=== PATIENT | female | born 1955 | race Caucasian/White ===

== ENCOUNTER → 2016-06-17 | Outpatient (CLI) | payer OTHER ==
--- NOTE | 2016-06-18 07:54 | MM ---
Reason for exam: screening (asymptomatic). Last mammogram was performed 2 years ago. History: Patient is postmenopausal, history of other cancer, and had first child at age 35. Took hormonal contraceptives for 3 months beginning at age 25. Took estrogen for 9 years beginning at age 44. Took progesterone for 9 years beginning at age 44. Physical Findings: A clinical breast exam by your physician is recommended on an annual basis and results should be correlated with mammographic findings. MG Screening Mammo w CAD Bilateral CC and MLO view(s) were taken. Prior study comparison: June 13, 2014, bilateral MG screening mammo w CAD. April 05, 2012, bilateral digital screening mammo w/CAD. The breast tissue is heterogeneously dense. This may lower the sensitivity of mammography. Small nodular density central right breast 2.4cm from nipple. This finding is changed when compared with previous exams. ASSESSMENT: Incomplete: need additional imaging evaluation, BI-RAD 0 RECOMMENDATION: Special view mammogram of the right breast. [facility] will attempt to contact patient to return for supplemental views.
--- NOTE | 2016-06-18 08:35 | BD ---
EXAMINATION TYPE: MG DEXA axial skeleton. DATE OF EXAM: 06/17/2016 10:24 AM COMPARISON: 2014 CLINICAL HISTORY: osteoporosis Height: 5'3 Weight: 147 FRAX RISK QUESTIONS: Alcohol (3 or more units per day): no Family History (Parent hip fracture): no Glucocorticoids (More than 3mos): no (Ex: prednisone, prednisolone, methylprednisolone, dexamethasone, and hydrocortisone). History of Fracture in Adulthood: no Secondary Osteoporosis: 1. Type 1 Diabetes: no 2. Hyperthyroidism: no 3. Menopause before 45: no 4. Malnutrition: no 5. Chronic liver disease: no Rheumatoid Arthritis: no Current Tobacco Use: no RISK FACTORS HISTORY OF: Surgery to Spine When: teen age has stewart Family History of Osteoporosis: yes Postmenopausal woman: MEDICATIONS: Osteoporosis Medications: Which medication: Boniva How Lon years Additional Medications: blood pressure Additional History: osteopenia EXAM MEASUREMENTS: Bone mineral densitometry was performed using the [employer] System. Bone mineral density about the R hip (g/cm2): 0.753 Bone mineral density about the L hip (g/cm2): 0.684 T Score values are as follows: -----R Neck: -2.0 -----L Neck: -2.5 -----R Intertrochanter: -1.3 -----L Intertrochanter: -1.8 Bone mineral density has: Increased 1.2% since study of: 06/13/2014 IMPRESSION: Osteopenia (T Score between -2.5 and -1 as noted by T score values: Jose Alejandro Hips There is slightly increased risk of fracture and the patient may be considered for treatment. Re-Screen 1-2 years. NOTE: T-SCORE=SD OF THE YOUNG ADULT MEAN.
== END | disposition home or self-care (01) ==
LOC: RADMAMWWP 09:43
PROVIDERS: ATTEND Internal Medicine
DX: Z12.31 Encounter for screening mammogram for malignant neoplasm of breast (principal); M85.80 Other specified disorders of bone density and structure, unspecified site; R92.2 Inconclusive mammogram
CPT/HCPCS: 77080; G0202

== ENCOUNTER → 2016-06-23 | Outpatient (CLI) | payer OTHER ==
--- NOTE | 2016-06-24 12:15 | MM ---
Reason for exam: additional evaluation requested from abnormal screening. Last mammogram was performed less than 1 month ago. History: Patient is postmenopausal, history of other cancer, and had first child at age 35. Took hormonal contraceptives for 3 months beginning at age 25. Took estrogen for 9 years beginning at age 44. Took progesterone for 9 years beginning at age 44. Physical Findings: Nurse did not find any significant physical abnormalities on exam. MG Work Up Mamm w CAD RT ML, spot compression CC, and spot compression MLO view(s) were taken of the right breast. Prior study comparison: June 17, 2016, bilateral MG screening mammo w CAD. June 13, 2014, bilateral MG screening mammo w CAD. April 05, 2012, bilateral digital screening mammo w/CAD. Finding: There is a 6 mm circumscribed round mass in the right breast. These results were verbally communicated with the patient and result sheet given to the patient on 06/23/16. ASSESSMENT: Incomplete: need additional imaging evaluation, BI-RAD 0 RECOMMENDATION: Ultrasound of the right breast.
--- NOTE | 2016-06-24 12:18 | USB ---
Reason for exam: additional evaluation requested from abnormal screening. History: Patient is postmenopausal, history of other cancer, and had first child at age 35. Took hormonal contraceptives for 3 months beginning at age 25. Took estrogen for 9 years beginning at age 44. Took progesterone for 9 years beginning at age 44. US Breast Workup Limited RT Right breast ultrasound demonstrates a 6 x 3 x 6mm oval, cystic lesion at 12 o'clock 2.5cm from nipple. These results were verbally communicated with the patient and result sheet given to the patient on 06/23/16. ASSESSMENT: Benign, BI-RAD 2 RECOMMENDATION: Return to routine screening mammogram schedule for both breasts.
== END | disposition home or self-care (01) ==
LOC: RADMAMWWP 14:07
PROVIDERS: ATTEND Internal Medicine
DX: R92.2 Inconclusive mammogram (principal); R92.8 Other abnormal and inconclusive findings on diagnostic imaging of breast
CPT/HCPCS: 76642; G0206

== ENCOUNTER → 2017-08-11 | Outpatient (CLI) | payer OTHER ==
--- NOTE | 2017-08-12 09:46 | MM ---
Reason for exam: screening (asymptomatic). Last mammogram was performed 1 year and 2 months ago. History: Patient is postmenopausal, has history of other cancer at age 60, and had first child at age 35. Took hormonal contraceptives for 3 months beginning at age 25. Took estrogen for 9 years beginning at age 44. Took progesterone for 9 years beginning at age 44. Physical Findings: A clinical breast exam by your physician is recommended on an annual basis and results should be correlated with mammographic findings. MG Screening Mammo w CAD Bilateral CC and MLO view(s) were taken. Prior study comparison: June 23, 2016, right breast MG work up mamm w CAD RT. June 17, 2016, bilateral MG screening mammo w CAD. The breast tissue is heterogeneously dense. This may lower the sensitivity of mammography. There is a stable mass at 12:00 anterior depth right breast sonographically proven to represent a cyst on 06/23/16. Benign appearing bilateral calcifications. ASSESSMENT: Benign, BI-RAD 2 RECOMMENDATION: Routine screening mammogram of both breasts in 1 year. Manage on a clinical basis with regard to right nipple intermittent pain. No palpable at this time. If palpable diagnostic exam recommended.
== END ==
LOC: RADMAMWWP 11:01
PROVIDERS: ATTEND Internal Medicine
DX: Z12.31 Encounter for screening mammogram for malignant neoplasm of breast (principal)
CPT/HCPCS: 77067

== ENCOUNTER → 2018-09-08 | Outpatient (CLI) | payer BC ==
--- NOTE | 2018-09-08 11:04 | BD ---
EXAMINATION TYPE: Axial Bone Density DATE OF EXAM: 09/08/2018 COMPARISON: 2017 CLINICAL HISTORY: M [age] Height: 62.5 Weight: 150.1 FRAX RISK QUESTIONS: Alcohol (3 or more units per day): no Family History (Parent hip fracture): no Glucocorticoids (More than 3mos): no (Ex: prednisone, prednisolone, methylprednisolone, dexamethasone, and hydrocortisone). History of Fracture in Adulthood: no Secondary Osteoporosis: 1. Type 1 Diabetes: no 2. Hyperthyroidism: no 3. Menopause before 45: no 4. Malnutrition: no 5. Chronic liver disease: no Rheumatoid Arthritis: no Current Tobacco Use: no RISK FACTORS HISTORY OF: Surgery to Spine/Hip(right/left)/Wrist (right/left): scoliosis surgery When: as a teenager Family History of Osteoporosis: yes mother Active: yes Diet low in dairy products/other sources of calcium: no Postmenopausal woman: age 45 Lost more than 2 inches in height since high school: yes MEDICATIONS: blood pressure and water pill Osteoporosis Medications: boniva How Long: stopped 4 months ago after taking for 4 years Additional Medications: Additional History: EXAM MEASUREMENTS: Bone mineral densitometry was performed using the [employer] System. Bone mineral density about the R hip (g/cm2): 0.787 Bone mineral density about the L hip (g/cm2): 0.701 T Score values are as follows: -----R Neck: -1.8 -----L Neck: -2.4 -----R Total: -1.4 -----L Total: -2.1 Bone mineral density has: increased 2.6 % since study of: 4. Bone mineral density about the L Wrist (g/cm2): 0.585 T Score values are as follows: -----Dist. R+U: -2.3 -----Prox. R+U: -0.9 -----Radius total: -1.5 Bone mineral density : baseline IMPRESSION: Osteopenia (T Score between -2.5 and -1). Values are borderline for osteoporosis. There is slightly increased risk of fracture and the patient may be considered for treatment. Re-Screen 2-5 years. NOTE: T-SCORE=SD OF THE YOUNG ADULT MEAN.
--- NOTE | 2018-09-09 09:13 | MM ---
Reason for exam: screening (asymptomatic). Last mammogram was performed 1 year and 1 month ago. History: Patient is postmenopausal, has history of other cancer at age 60, and had first child at age 35. Took hormonal contraceptives for 3 months beginning at age 25. Took estrogen for 9 years beginning at age 44. Took progesterone for 9 years beginning at age 44. Physical Findings: A clinical breast exam by your physician is recommended on an annual basis and results should be correlated with mammographic findings. MG 3D Screening Mammo W/Cad Bilateral CC and MLO view(s) were taken. Prior study comparison: August 11, 2017, bilateral MG screening mammo w CAD. June 23, 2016, right breast MG work up mamm w CAD RT. The breast tissue is heterogeneously dense. This may lower the sensitivity of mammography. There is a stable right retroareolar mass. Benign appearing bilateral calcifications. No suspicious abnormality. ASSESSMENT: Benign, BI-RAD 2 RECOMMENDATION: Routine screening mammogram of both breasts in 1 year.
== END | disposition home or self-care (01) ==
LOC: RADMAMWWP 09:32
PROVIDERS: ATTEND Internal Medicine
DX: Z12.31 Encounter for screening mammogram for malignant neoplasm of breast (principal); M85.80 Other specified disorders of bone density and structure, unspecified site
CPT/HCPCS: 77063; 77067; 77080

== ENCOUNTER → 2019-12-26 | Outpatient (CLI) | payer BC ==
--- NOTE | 2019-12-28 10:23 | MM ---
Reason for exam: screening (asymptomatic). Last mammogram was performed 1 year and 4 months ago. History: Patient is postmenopausal, has history of other cancer at age 60, and had first child at age 35. Took hormonal contraceptives for 3 months beginning at age 25. Took estrogen for 9 years beginning at age 44. Took progesterone for 9 years beginning at age 44. Physical Findings: A clinical breast exam by your physician is recommended on an annual basis and results should be correlated with mammographic findings. MG 3D Screening Mammo W/Cad Bilateral CC and MLO view(s) were taken. Prior study comparison: September 08, 2018, bilateral MG 3d screening mammo w/cad. August 11, 2017, bilateral MG screening mammo w CAD. The breast tissue is heterogeneously dense. This may lower the sensitivity of mammography. There are benign appearing round calcifications bilaterally, greater in the left breast. There is chronic nodularity in the right subareolar breast and in the left breast, smaller anterior upper quadrant, stable. No changes since 2017. There is no discrete abnormality. ASSESSMENT: Benign, BI-RAD 2 RECOMMENDATION: Routine screening mammogram of both breasts in 1 year.
== END | disposition home or self-care (01) ==
LOC: RADMAMWWP 13:47
PROVIDERS: ATTEND Family Medicine
DX: Z12.31 Encounter for screening mammogram for malignant neoplasm of breast (principal)
CPT/HCPCS: 77063; 77067

== ENCOUNTER → 2021-02-12 | Outpatient (CLI) | payer OTHER ==
--- NOTE | 2021-02-14 11:56 | MM ---
Reason for exam: screening (asymptomatic). Last mammogram was performed 1 year and 2 months ago. History: Patient is postmenopausal, has history of other cancer at age 60, and had first child at age 35. Took hormonal contraceptives for 3 months beginning at age 25. Took estrogen for 9 years beginning at age 44. Took progesterone for 9 years beginning at age 44. Physical Findings: A clinical breast exam by your physician is recommended on an annual basis and results should be correlated with mammographic findings. MG 3D Screening Mammo W/Cad Bilateral CC and MLO view(s) were taken. Prior study comparison: December 26, 2019, bilateral MG 3d screening mammo w/cad. September 08, 2018, bilateral MG 3d screening mammo w/cad. The breast tissue is heterogeneously dense. This may lower the sensitivity of mammography. There are benign appearing round calcifications bilaterally. There is chronic nodularity in the right breast. ASSESSMENT: Benign, BI-RAD 2 RECOMMENDATION: Routine screening mammogram of both breasts in 1 year.
== END | disposition home or self-care (01) ==
LOC: RADMAMWWP 10:15
PROVIDERS: ATTEND Family Medicine
DX: Z12.31 Encounter for screening mammogram for malignant neoplasm of breast (principal); Z78.0 Asymptomatic menopausal state
CPT/HCPCS: 77063; 77067

== ENCOUNTER → 2022-02-13 | Outpatient (CLI) | payer MEDICARE ==
--- NOTE | 2022-02-14 14:49 | MM ---
Reason for Exam: Screening (asymptomatic). Last screening mammogram was performed 12 month(s) ago. Patient History: Menarche at age 12. First Full-Term at age 35. Late child-bearing (after 30). Postmenopausal. Other cancer, age 60. Estrogen for 9 years from age 44 until age 55. Progesterone for 9 years from age 44 until age 55. Hormonal Contraceptives for 3 months starting at age 25. Risk Values: Maite 5 year model risk: 2.3%. NCI Lifetime model risk: 8.2%. Prior Study Comparison: 09/08/2018 Bilateral Screening Mammogram, [facility]. 12/26/2019 Bilateral Screening Mammogram, [facility]. 02/12/2021 Bilateral Screening Mammogram, [facility]. Tissue Density: There are scattered fibroglandular densities. Findings: Analyzed By CAD. After symmetrical and stable. Benign calcification is present bilaterally. No suspicious groups of microcalcifications, spiculated or lobular masses, architectural distortion or other secondary signs of malignancy are mammographically apparent. Overall Assessment: Benign, BI-RAD 2 Management: Screening Mammogram of both breasts in 1 year. A negative mammogram report should not preclude additional follow up of suspicious palpable abnormalities. Patient should continue monthly self breast exam. A clinical breast exam by your physician is recommended on an annual basis and results should be correlated with mammographic findings. Electronically signed and approved by: Eloy Nava D.O. Radiologis
--- NOTE | 2022-02-14 15:06 | BD ---
EXAMINATION TYPE: Axial Bone Density DATE OF EXAM: 02/13/2022 COMPARISON: 09-08-18 CLINICAL HISTORY: 66 years year old Female. ICD-10 CODE: M41.9 SCOLIOSIS Height: 62IN Weight: 150LB FRAX RISK QUESTIONS: Secondary Osteoporosis: 3. Menopause before 45: AT 45 RISK FACTORS HISTORY OF: Surgery to Spine): SCOLIOSIS SURGERY A TEENAGER When: Family History of Osteoporosis: YES Active: YES Postmenopausal woman: YES Take estrogen and/or progesterone medications: YES, NONE CURRENT How long: ABOUT 10 YEARS Lost more than 2 inches in height since high school: YES MEDICATIONS: Osteoporosis Medications: Which medication: Boniva NONE CURRENT How Lon YEARS Additional Medications: BP MEDS, WATER PILL, CALCIUM WITH VITAMIN D Additional History: EXAM MEASUREMENTS: Bone mineral densitometry was performed using the [email or web address] System. Bone mineral density about the R hip (g/cm2): 0.826 Bone mineral density about the L hip (g/cm2): 0.756 T Score values are as follows: -----R Neck: -1.7 -----L Neck: -2.2 -----R Total: -1.4 -----L Total: -1.9 Bone mineral density has: Increased 1.3% since study of: 09-08-18 Bone mineral density about the L Wrist (g/cm2): 0.528 T Score values are as follows: -----Dist. R+U: -2.5 -----Prox. R+U: -1.3 -----Radius total: -2.1 Bone mineral density has: Decreased -4.0% since study of: 09-08-18 FRAX%s: The graph provided illustrates a 12.2% chance for a major osteoporotic fx and a 2.3% chance f or the hips probability for fx in 10 years time. IMPRESSION: Osteopenia (T Score between -2.5 and -1). There is slightly increased risk of fracture and the patient may be considered for treatment. Re-Screen 2-5 years. NOTE: T-SCORE=SD OF THE YOUNG ADULT MEAN.
== END | disposition home or self-care (01) ==
LOC: RADBDWWP 11:11
PROVIDERS: ATTEND Family Medicine
DX: Z12.31 Encounter for screening mammogram for malignant neoplasm of breast (principal); M85.89 Other specified disorders of bone density and structure, multiple sites; M41.9 Scoliosis, unspecified; Z78.0 Asymptomatic menopausal state
CPT/HCPCS: 77063; 77067; 77080

== ENCOUNTER → 2023-03-17 | Outpatient (CLI) | payer MEDICARE ==
--- NOTE | 2023-03-17 14:40 | MM ---
Reason for Exam: Screening (asymptomatic). Last mammogram was performed 1 year(s) and 1 month(s) ago. Patient History: Menarche at age 12. First Full-Term at age 35. Late child-bearing (after 30). Postmenopausal. Estrogen for 9 years from age 44 until age 55. Progesterone for 9 years from age 44 until age 55. Hormonal Contraceptives for 3 months starting at age 25. Risk Values: Maite 5 year model risk: 2.3%. NCI Lifetime model risk: 7.9%. Prior Study Comparison: 12/26/2019 Bilateral Screening Mammogram, [facility]. 02/12/2021 Bilateral Screening Mammogram, [facility]. 02/13/2022 Bilateral MG 3D screening mammo w/cad, [facility]. Tissue Density: There are scattered fibroglandular densities. Findings: Analyzed By CAD. There is no suspicious group of microcalcifications or new suspicious mass. Benign-appearing calcifications bilaterally. Overall Assessment: Negative, BI-RAD 1 Management: Screening Mammogram of both breasts in [address] [facility] will attempt to contact patient to return for supplemental views and ultrasound if indicated. Patient should continue monthly self-breast exams. A clinical breast exam by your physician is recommended on an annual basis. This exam should not preclude additional follow-up of suspicious palpable abnormalities. Note on Maite scores and lifetime risk: 1. A Maite score greater than 3% is considered moderate risk. If this is the case, consider specialist referral to assess eligibility for a risk reducing agent. 2. If overall lifetime risk for the development of breast cancer is 20% or higher, the patient may qualify for future screening with alternating mammogram and breast MRI. Electronically signed and approved by: Vince Hauser DO
== END | disposition home or self-care (01) ==
LOC: RADMAMWWP 09:46
PROVIDERS: ATTEND Family Medicine
DX: Z12.31 Encounter for screening mammogram for malignant neoplasm of breast (principal); Z78.0 Asymptomatic menopausal state
CPT/HCPCS: 77063; 77067

== ENCOUNTER → 2024-03-18 | Outpatient (CLI) | payer MEDICARE ==
--- NOTE | 2024-03-18 10:28 | MM ---
Reason for Exam: Screening (asymptomatic). Last screening mammogram was performed 12 month(s) ago. Patient History: Menarche at age 12. First Full-Term at age 35. Late child-bearing (after 30). Postmenopausal. Estrogen for 9 years from age 44 until age 55. Progesterone for 9 years from age 44 until age 55. Hormonal Contraceptives for 3 months starting at age 25. Risk Values: Maite 5 year model risk: 2.4%. NCI Lifetime model risk: 7.6%. Prior Study Comparison: 02/12/2021 Bilateral Screening Mammogram, [facility]. 02/13/2022 Bilateral MG 3D screening mammo w/cad, [facility]. 03/17/2023 Bilateral MG 3D screening mammo w/cad, [facility]. Tissue Density: The breasts are heterogeneously dense, which may obscure small masses. Findings: Analyzed By CAD. There are some scattered small round calcifications bilaterally redemonstrated. Stable 6 mm small round circumscribed mass subareolar region right breast. Benign-appearing left axillary lymph nodes are redemonstrated. There is no suspicious group of microcalcifications or new suspicious mass in either breast. Overall Assessment: Benign, BI-RAD 2 Management: Screening Mammogram of both breasts in 1 year. . Patient should continue monthly self-breast exams. A clinical breast exam by your physician is recommended on an annual basis. This exam should not preclude additional follow-up of suspicious palpable abnormalities. Note on Maite scores and lifetime risk: 1. A Maite score greater than 3% is considered moderate risk. If this is the case, consider specialist referral to assess eligibility for a risk reducing agent. 2. If overall lifetime risk for the development of breast cancer is 20% or higher, the patient may qualify for future screening with alternating mammogram and breast MRI. [facility], , 03/18/2024 10:25 AM. Electronically signed and approved by: Alexandr Zarco M.D.
--- NOTE | 2024-03-18 11:11 | BD ---
EXAMINATION TYPE: Axial Bone Density DATE OF EXAM: 03/18/2024 CLINICAL HISTORY: 68 years old Female. ICD-10 CODE: M81.0 AGE-RELATED OSTEOPOROSIS , Additional His tory: Height: 62 Weight: 152.1 FRAX RISK QUESTIONS: Alcohol (3 or more units per day): no Family History (Parent hip fracture): no Glucocorticoids (More than 3mos): no (Ex: prednisone, prednisolone, methylprednisolone, dexamethasone, and hydrocortisone). History of Fracture in Adulthood: no Secondary Osteoporosis: 1. Type 1 Diabetes: no 2. Hyperthyroidism: no 3. Menopause before 45: no 4. Malnutrition: no 5. Chronic liver disease: no Rheumatoid Arthritis: no Current Tobacco Use: no RISK FACTORS HISTORY OF: Surgery to Spine/Hip(right/left)/Wrist (right/left): lumbar spine When: scoliosis- EXAM MEASUREMENTS: Bone mineral densitometry was performed using the [employer] System. Bone mineral density about the R hip (g/cm2): 0.793 Bone mineral density about the L hip (g/cm2): 0.725 T Score values are as follows: -----R Neck: -2.1 -----L Neck: -2.5 -----R Total: -1.7 -----L Total: -2.2 Z Score values are as follows: -----R Neck: -0.5 -----L Neck: -0.9 -----R Total: -0.4 -----L Total: -0.9 Bone mineral density has: decreased -4.6 % since study of: 02.13.2022 Bone mineral density about the L Wrist (g/cm2): 0.545 T Score values are as follows: -----Dist. R+U: -2.9 -----Prox. R+U: -1.6 -----Radius total: -2.1 Z Score values are as follows: -----Dist. R+U: -1.1 -----Prox. R+U: 0.1 -----Radius total: -0.4 Bone mineral density has: decreased -3.0 % since study of: 02.13.2022 FRAX%s: The graph provided illustrates a 14.2% chance for a major osteoporotic fx and a 3.4% chance f or the hips probability for fx in 10 years time. IMPRESSION: Osteopenia (T Score between -2.5 and -1) remains present. There is slightly increased risk of fracture and the patient may be considered for treatment. Re-Screen 2-5 years. NOTE: T-SCORE=SD OF THE YOUNG ADULT MEAN. [facility], , 03/18/2024 11:08 AM
== END | disposition home or self-care (01) ==
LOC: RADMAMWWP 10:04
PROVIDERS: ATTEND Internal Medicine Geriatric Medicine
DX: Z12.31 Encounter for screening mammogram for malignant neoplasm of breast (principal); M81.0 Age-related osteoporosis without current pathological fracture; Z78.0 Asymptomatic menopausal state; R92.333 Mammographic heterogeneous density, bilateral breasts
CPT/HCPCS: 77063; 77067; 77080